=== PATIENT | male | born 1985 | race Caucasian/White ===

== ENCOUNTER → 2019-08-16 | Outpatient (CLI) | payer BC, OTHER ==
--- NOTE | 2019-08-16 18:09 | REP ---
MRI left chest wall. History: Rule out pectoralis major tear. Strain of muscle. No comparison imaging. Technique: Axial, coronal and sagittal imaging planes utilized. T1 and T2-weighted scans were included with and without fat saturation. MRI findings: There is a focal area of fibrosis and contraction in the left inferolateral pectoralis major muscle consistent with a chronic tear with associated scarring. There is some regional fatty involution. No mass or abnormal fluid collection is seen. Cortical and medullary bone signal intensity are normal. No other abnormality is observed. Impression: There is contour deformity and some fibrosis along the inferior and lateral margin of the pectoralis muscle on the left consistent with a chronic tear. Electronically Signed by Jorge Clements MD 08/16/2019 06:41 P
== END ==
LOC: M RAD 14:35
PROVIDERS: ATTEND Orthopaedic Surgery
DX: S46.812A Strain of other muscles, fascia and tendons at shoulder and upper arm level, left arm, initial encounter (principal); M62.89 Other specified disorders of muscle; X58.XXXA Exposure to other specified factors, initial encounter

== ENCOUNTER → 2020-06-09 | Outpatient (CLI) | payer SELFPAY | LOC: M LABSMTC 13:57 | PROVIDERS: ATTEND Pediatrics | DX: Z20.828 Contact with and (suspected) exposure to other viral communicable diseases (principal) ==

== ENCOUNTER → 2020-06-16 | Outpatient (CLI) | payer SELFPAY | LOC: M LABSMTC 12:40 | PROVIDERS: ATTEND Pediatrics | DX: Z20.828 Contact with and (suspected) exposure to other viral communicable diseases (principal) ==

== ENCOUNTER → 2021-12-28 | Outpatient (CLI) | payer OTHER | LOC: M OUTALCOH 07:45 | PROVIDERS: ATTEND Psychiatry & Neurology Psychiatry | DX: F10.10 Alcohol abuse, uncomplicated (principal) ==

== ENCOUNTER → 2022-01-20 | Outpatient (RCR) | payer OTHER | LOC: M OUTALCOH 12-28 09:00 | PROVIDERS: ATTEND Psychiatry & Neurology Psychiatry | DX: F10.20 Alcohol dependence, uncomplicated (principal) ==

== ENCOUNTER 2022-02-17 09:52 | Outpatient (RCR) | payer OTHER | END 2022-02-20 | LOC: M OUTALCOH 09:52 | PROVIDERS: ATTEND Psychiatry & Neurology Psychiatry | DX: F10.20 Alcohol dependence, uncomplicated (principal) ==

== ENCOUNTER 2022-03-17 09:00 | Outpatient (RCR) | payer OTHER | END 2022-03-23 | LOC: M OUTALCOH 09:00 | PROVIDERS: ATTEND Psychiatry & Neurology Psychiatry | DX: F10.20 Alcohol dependence, uncomplicated (principal) ==

== ENCOUNTER 2022-04-21 11:30 | Outpatient (RCR) | payer OTHER | END 2022-04-22 | LOC: M OUTALCOH 11:30 | PROVIDERS: ATTEND Psychiatry & Neurology Psychiatry | DX: F10.20 Alcohol dependence, uncomplicated (principal) ==